=== PATIENT | female | born 1945 | race Caucasian/White ===

== ENCOUNTER 2021-08-10 15:55 | Emergency (ER) | payer MEDICARE, OTHER ==
[~2021-08-10] VITALS: Ht 162.6 cm; Wt 95.7 kg
[~2021-08-10 15:55] MED LIST: ASPIRIN81 MG PO; CLEOCIN300 MG PO; COLACE100 MG PO; GLIPIZIDE 5 MG (5 MG PO; NORCO 5-325 TA1 EACH PO; PRILOSEC20 MG PO; SYNTHROID175 MCG PO; TYLENOL325 M1 PO; VITAMIN D1000 UNI1 PO; ZOCOR40 MG PO
[2021-08-10 16:45] LABS: ALBUMIN 3.6 g/dL (3.4-5.0); BILIRUBIN - TOTAL 0.5 mg/dL (0.2-1.0); BUN/CREAT RATIO (CALC) 20.9 RATIO; CREATININE 1.58 mg/dL (0.51-0.95); GLOBULIN (CALCULATION) 4.6 g/dL; TOTAL PROTEIN 8.2 g/dL (6.4-8.2)
[2021-08-10 16:51] LABS: LACTIC ACID 2.3 mmol/L (0.4-1.9)
[2021-08-10 16:55] LABS: BASOPHIL 0.7 % (0-2); EOSINOPHIL 1.3 % (0-7); HCT 43.2 % (37.0-47.0); HGB 13.9 g/dl (12.5-16.0); LYMPHOCYTE 37.3 % (15-48); MCH 30.8 pg (25.0-31.0); MCHC 32.2 g/dL (32.0-36.0); MCV 95.6 fL (78.0-100.0); MONOCYTE 11.9 % (0-12); MPV 9.6 fL (6.0-9.5); NEUTROPHIL 48.4 % (41-80); NRBC 0; PLT 229 K/uL (150-400); RBC 4.52 M/uL (4.20-5.40); RDW 14.9 % (11.5-14.0); WBC 7.6 K/uL (4.0-10.5)
[2021-08-10 17:20] LABS: BILIRUBIN NEGATIVE (NEGATIVE); BLOOD NEGATIVE Ery/uL (NEGATIVE); CLARITY CLEAR (CLEAR); COLOR YELLOW (YELLOW); GLUCOSE (U) NORMAL (NORMAL); LEUKOCYTES NEGATIVE Leu/uL (NEGATIVE); NITRITE NEGATIVE (NEGATIVE); PROTEIN NEGATIVE (NEGATIVE); SPECIFIC GRAVITY 1.025 (1.001-1.030); UROBILINOGEN 0.2 mg/dL (0.2-1.0)
[2021-08-10 17:42] LABS: CORONAVIRUS 2019 SARS-COV-2 NEGATIVE (NEGATIVE); INFLUENZA A NAA NEGATIVE (NEGATIVE)
== END 2021-08-10 20:03 | disposition left against medical advice (07) ==
LOC: FER 15:55
PROVIDERS: Emergency Medicine
DX: J44.1 Chronic obstructive pulmonary disease with (acute) exacerbation (principal); R09.02 Hypoxemia; I25.10 Atherosclerotic heart disease of native coronary artery without angina pectoris; E11.9 Type 2 diabetes mellitus without complications; J44.9 Chronic obstructive pulmonary disease, unspecified; I10 Essential (primary) hypertension; F17.210 Nicotine dependence, cigarettes, uncomplicated; Z53.8 Procedure and treatment not carried out for other reasons; Z20.822 Contact with and (suspected) exposure to COVID-19
CPT/HCPCS: 36415; 36600; 71045; 80053; 81003; 82803; 83605; 85025; 94640; 94664; 94762; J0456; J0696; J2930; J7050; U0002